=== PATIENT | female | born 2005 | race Hispanic/Latino ===

== ENCOUNTER 2023-08-29 05:44 | Emergency (ER) | payer OTHER, SELFPAY ==
[2023-08-29 05:52] VITALS: BP 116/77; PULSE 93; RESP 18; TEMP 36.9; O2SAT 100
--- NOTE | 2023-08-29 06:03 | ED.FEMALEGU ---
HPI - Female Genitourinary General Chief complaint: Urogenital-Female Stated complaint: uti Time Seen by Provider: 08/29/23 05:55 History of Present Illness HPI Narrative: Patient states she woke up in the night and felt pain when she went to the bathroom, and a feeling like she cannot pee completely, and felt like she was going more often, describes a burning sensation. No abdominal or flank pain. No fevers or chills. She asked her sister who told her she needed to be seen immediately so it does not become worse. Related Data Allergies Allergy/AdvReac Type Severity Reaction Status Date / Time No Known Allergies Allergy Verified 08/29/23 05:53 Review of Systems Review of Systems: All systems reviewed & are unremarkable except as noted in HPI and below Exam Narrative: EXAMINATION OF ORGAN SYSTEMS/BODY AREAS: Constitutional: Vital signs per nursing GENERAL:[No acute distress, non-toxic appearing.] HEAD: Normal with no signs of head trauma. EYES: EOMI, conjunctiva normal ENT: Hearing grossly intact LUNGS: Nonlabored breathing. HEART: [Regular rate and rhythm] ABD: [Soft], [nontender to palpation]; no CVA tenderness EXT: Normal range of motion SKIN: [No rashes or lesions.] NEURO: [Alert and oriented x 3. No gross focal sensory or strength deficits.] PSYCH: Normal affect Course Vital Signs Vital signs: Vital Signs Temperature 98.4 F 08/29/23 05:52 Pulse Rate 93 08/29/23 05:52 Respiratory Rate 18 08/29/23 05:52 Blood Pressure 116/77 08/29/23 05:52 Pulse Oximetry 100 08/29/23 05:52 Temperature 98.4 F 08/29/23 05:52 Pulse Rate 91 08/29/23 06:14 Respiratory Rate 14 08/29/23 06:14 Blood Pressure 125/80 08/29/23 06:14 Pulse Oximetry 100 08/29/23 06:14 MDM - Female Genitourinary MDM Narrative Medical decision making narrative: 18 year-old patient presenting with urinary symptoms consistent with UTI. Urinalysis is obtained and positive for signs of infection. Urine culture sent. [ test is negative.] Patient started on Macrobid and strongly advised to return for any increasing or worsening pain, fevers or vomiting. They expressed understanding of instructions and is discharged in stable condition. Lab Data Labs: Lab Results 08/29/23 Range/Units 05:52 Urine Color Yellow (Yellow) Urine Appearance Cloudy H (Clear) Urine pH 6.0 (5.0-9.0) Ur Specific [place] 1.023 (1.001-1.035) Urine Protein 4+ H (Negative) mg/dL Urine Glucose (UA) Negative (Negative) mg/dL Urine Ketones Negative (Negative) mg/dL Ur Blood (Man) 3+ H (Negative) Urine Nitrate Negative (Negative) Urine Bilirubin Negative (Negative) Urine Urobilinogen 1.0 (<2.0) mg/dL Leukocyte Esterase Rfl 1+ H (Negative) HAYDEN/UL Urine RBC >100 H (0-2) /hpf Urine WBC Unable to determine (0-3) /hpf Urine Bacteria Noted (None) /hpf UCG Bedside Result Negative Reference Range: Negative Discharge Plan Discharge Clinical Impression: Urinary tract infection, Cystitis Patient Disposition: Home, Self-Care Condition: Stable Instructions: Antibiotic Form, Urinary Tract Infection in Women (ED) Follow-up/Referrals: Po,RAYNE Solo [Primary Care Provider] -
[2023-08-29 06:14] VITALS: BP 125/80; PULSE 91; RESP 14; O2SAT 100
[2023-08-29 06:51] LABS: Appearance Urine Cloudy (Clear); Bilirubin Urine Negative (Negative); Blood Urine 3+ (Negative); Color Urine Yellow (Yellow); Glucose Urine UA Negative (Negative); Ketones Urine Negative (Negative); Leukocyte Esterase Ur 1+ LEU/UL (Negative); Nitrate Urine Negative (Negative); Protein Urine 4+ mg/dL (Negative); Specific Grav Ur 1.023 (1.001-1.035)
[2023-08-29 06:53] LABS: Bacteria Urine Noted /hpf; RBC Urine >100 /hpf (0-2); WBC Urine Unable to determine /hpf (0-3)
[2023-08-29] MEDS: NITROFURANTOIN MONOHYD MACROCR 100 MG CAP PO (07:05)
[2023-08-29 07:18] LABS: Add Urine Microscopic? YES
== END 2023-08-29 07:08 | disposition home or self-care (01) ==
PROVIDERS: Emergency Provider Emergency Medicine; PCP Registered Nurse
DX: N30.90 Cystitis, unspecified without hematuria (principal)
CPT/HCPCS: 81001; 81025; 99283; A9270